=== PATIENT | male | born 1980 | race Caucasian/White ===

== ENCOUNTER 2020-07-02 23:04 | Emergency (ER) | payer BC, OTHER ==
[2020-07-03] MEDS ORDERED: BACTROBAN OINT22 GM EXT (00:03)
== END 2020-07-03 00:05 | disposition home or self-care (01) ==
LOC: ER1 23:04
DX: S61.031A Puncture wound without foreign body of right thumb without damage to nail, initial encounter (principal); Z23 Encounter for immunization; Z88.8 Allergy status to other drugs, medicaments and biological substances; W45.8XXA Other foreign body or object entering through skin, initial encounter
CPT/HCPCS: 10120; 90471; 90715; 99283